=== PATIENT | male | born 1980 | race Caucasian/White ===

== ENCOUNTER 2018-04-18 01:47 | Emergency (ER) | payer OTHER ==
[~2018-04-18] VITALS: Ht 175.3 cm; Wt 105.7 kg
[2018-04-18 01:58] VITALS: Ht 175.3 cm; Wt 105.7 kg
[2018-04-18 03:05] VITALS: BP 136/95
== END 2018-04-18 03:05 | disposition home or self-care (01) ==
LOC: ED 01:47
DX: L05.91 Pilonidal cyst without abscess (principal)